=== PATIENT | female | born 1970 | race Caucasian/White ===

== ENCOUNTER → 2016-09-29 | Outpatient (CLI) | payer OTHER ==
--- NOTE | 2016-09-29 12:29 | CT ---
EXAMINATION TYPE: CT sinus wo con DATE OF EXAM: 09/29/2016 12:15 PM COMPARISON: NONE HISTORY: 46 year-old female complaining of chronic sinusitis and chronic allergies. CT DLP: 583.7 mGycm Automated exposure control for dose reduction was used. TECHNIQUE: Noncontrast axial views of the paranasal sinuses were obtained. Coronal reconstructions pe rformed. FINDINGS: There is mucosal thickening with frothy partial opacification of the anterior left maxillary sinus an d partial opacification extending into the anterior left ethmoid air cells. The frontal and sphenoid sinuses are clear. No air-fluid level. Reactive basilia- osteogenesis is not seen. There is no destruction of the osseous gimenez of the paranasal sinuses. Mucosal thickening extends to involve the region of the left osteomeatal complex. The imaged brain, sella, skull base and orbits are normal in appearance. Mastoid air cells and middle ear cavities are well pneumatized. IMPRESSION: Mucosal thickening with frothy partial opacification of the anterior left maxillary sinus and anterio r left ethmoid air cells. Correlate for acute on chronic sinusitis. The remainder of the paranasal si nuses are clear.
[2016-09-30 23:42] LABS: Alternaria alternata IgE 0.15 kU/L; Aspergillus fumagatus IgE <0.10 kU/L; Cat Epith & Dander IgE 0.39 kU/L; Cladosporian herbarum IgE <0.10 kU/L; Dermato. farinae IgE 2.04 kU/L; Egg White IgE <0.10 kU/L; Maple (Box Elder) IgE <0.10 kU/L; Orchard Grs(Cocksfoot) IgE <0.10 kU/L; Peanut IgE <0.10 kU/L; Ragweed,Common IgE <0.10 kU/L; Soybean IgE <0.10 kU/L
[2016-10-01 13:19] LABS: Com. Pigweed IgE <0.35 kU/L (<0.35); Com. Pigweed IgE Class CLASS 0; House Dust (Greer) IgE <0.35 kU/L (<0.35); House Dust (Greer) IgE Class CLASS 0
[2016-10-01 13:19] LABS: Alpha Lactalbumin IgE Class CLASS 0; Pecan IgE <0.35 kU/L (<0.35); Pecan IgE Class CLASS 0
[2016-10-01 13:20] LABS: Beta Lactoglobulin IgE Class CLASS 0
[2016-10-01 13:21] LABS: Casein IgE Class CLASS 0; Egg Yolk IgE Class CLASS 0
[2016-10-01 13:22] LABS: Cheddar Cheese IgE <0.35 kU/L (<0.35); Cheddar Cheese IgE Class CLASS 0; Mold Cheese IgE <0.35 kU/L (<0.35); Mold Cheese IgE Class CLASS 0; Penicillium notatum IgE Class CLASS 0
[2016-10-01 13:23] LABS: House Dust (Greer) IgE <0.35 kU/L (<0.35); House Dust (Greer) IgE Class CLASS 0; Lamb's Quarter IgE <0.35 kU/L (<0.35); Lamb's Quarter IgE Class CLASS 0; Mugwort IgE Class CLASS 0
[2016-10-01 13:24] LABS: Sheep Sorrel IgE <0.35 kU/L (<0.35); Sheep Sorrel IgE Class CLASS 0
[2016-10-01 14:21] LABS: Meadow Fescue IgE <0.35 kU/L (<0.35); Meadow Fescue IgE Class CLASS 0; Meadow Grs (KY blue) IgE <0.35 kU/L (<0.35); Meadow Grs (KY blue) IgE Class CLASS 0; Orchard Grass IgE Class CLASS 0; Orchard Grass(Cocksfoot) IgE <0.35 kU/L (<0.35); Rye Grass IgE Class CLASS 0; Timothy Grass IgE <0.35 kU/L (<0.35); Timothy Grass IgE Class CLASS 0; Vernal Grass IgE <0.35 kU/L (<0.35); Vernal Grass IgE Class CLASS 0
[2016-10-03 19:31] LABS: Cow's Milk IgG 52.9 mcg/mL (< 2.0); Egg Yolk IgG 5.4 mcg/mL (< 2.0); Peanut IgG 2.1 mcg/mL (< 2.0); Soybean IgG 3.6 mcg/mL (< 2.0)
[2016-10-03 19:32] LABS: Casein IgG 3.1 mcg/mL (< 2.0); Wheat IgG 4.5 mcg/mL (< 2.0)
[2016-10-06 11:00] LABS: Mis test requested (Blood) Hickory IgE
[2016-10-06 11:07] LABS: Mis test requested (Blood) Plantain IgE
[2016-10-06 11:19] LABS: Mis test requested (Blood) Ovalbumin IgE
[2016-10-08 12:17] LABS: Mis test requested (Blood) Cat Dander IgG
[2016-10-08 12:34] LABS: CPT Code See Coomment
[2016-10-08 12:37] LABS: Mis test requested (Blood) Aspergillus Fum IgG
[2016-10-08 12:51] LABS: Mis test requested (Blood) Alternaria alter IgG
[2016-10-08 12:55] LABS: Mis test requested (Blood) Cottonwood IgG
[2016-10-08 12:59] LABS: Mis test requested (Blood) Cockroach IgG
[2016-10-08 13:11] LABS: Mis test requested (Blood) Birch IgG
[2016-10-16 10:34] LABS: Mis test requested (Blood) Shrimp IgG
[2016-10-16 10:44] LABS: Mis test requested (Blood) Cheddar Chz IgG
[2016-10-16 10:49] LABS: Mis test requested (Blood) Mold Chz IgG
[2016-10-16 10:53] LABS: Mis test requested (Blood) House Dust-Greer IgG
[2016-10-16 11:00] LABS: Mis test requested (Blood) Elm IgG
[2016-10-16 11:04] LABS: Mis test requested (Blood) Oak IgG
[2016-10-16 11:06] LABS: Mis test requested (Blood) Ragweed IgG
[2016-10-16 11:11] LABS: Mis test requested (Blood) Pecan IgG
[2016-10-16 11:29] LABS: Mis test requested (Blood) Red Top Grs IgG
[2016-10-16 11:37] LABS: Mis test requested (Blood) Maple Box Elder IgG
[2016-10-16 11:40] LABS: Mis test requested (Blood) Orchard Grass IgG
[2016-10-16 11:43] LABS: Mis test requested (Blood) Birch IgG
[2016-10-16 14:33] LABS: Mis test requested (Blood) Sagebrush IgG
[2016-10-21 10:56] LABS: Mis test requested (Blood) SEE OVALBUMIN IGE
[2016-10-21 10:57] LABS: Mis test result (Blood) SEE OVALBUMIN IGE
[2016-10-23 14:19] LABS: Mis test requested (Blood) P. notatum IgG
== END | disposition home or self-care (01) ==
LOC: RADCTMAIN 11:15
PROVIDERS: ATTEND Otolaryngology Facial Plastic Surgery
DX: J34.89 Other specified disorders of nose and nasal sinuses (principal); Z00.00 Encounter for general adult medical examination without abnormal findings
CPT/HCPCS: 70486; 82785; 86001; 86003

== ENCOUNTER 2018-01-21 15:55 | Emergency (ER) | payer OTHER ==
[2018-01-21 16:20] VITALS: RESP 18
[2018-01-21] MEDS ORDERED: CYCLOBENZAPRINE 10 MG TAB PO STA (17:59)
[2018-01-21] MEDS ORDERED: Acetaminophen-Codeine 300-30mg TAB PO STA (18:00)
--- NOTE | 2018-01-21 18:23 | ED ---
Fall HPI - General Chief Complaint: Fall Stated Complaint: Fell Time Seen by Provider: 01/21/18 17:45 Source: patient, RN notes reviewed Mode of arrival: wheelchair Limitations: no limitations - History of Present Illness Initial Comments: This a 48-year-old female presents emergency Department chief complaint of neck and arm pain. Patient states that she fell 2 days ago. She states she tripped over her flip-flop fell forward To herself or her arms. She initially only had upper arm and shoulder pain but now has developed neck pain this morning. She states hurts worse with movement. She denies any headache, dizziness, blurred vision, chest or shortness of breath. She denies any upper extremity paresthesias or weakness. She has been taking ibuprofen but has not helped much. She has not applied any heat or ice. She did admit to abrasion to her knee. - Related Data Home Medications Medication Instructions Recorded Confirmed Ibuprofen [Motrin Ib] 800 mg PO Q6H PRN 01/21/18 01/21/18 Previous Rx's Medication Instructions Recorded Acetaminophen-Codeine 300-30mg 1 tab PO Q4H PRN #14 tablet 01/21/18 [Tylenol #3] Cyclobenzaprine [Flexeril] 10 mg PO TID PRN #15 tab 01/21/18 Ibuprofen [Motrin] 600 mg PO Q8HR PRN #30 tab 01/21/18 Allergies Allergy/AdvReac Type Severity Reaction Status Date / Time egg Allergy sneezing Verified 01/21/18 17:53 milk Allergy sneezing Verified 01/21/18 17:53 sulfamethoxazole AdvReac Rash/Hives Verified 01/21/18 17:54 [From Bactrim] trimethoprim [From Bactrim] AdvReac Rash/Hives Verified 01/21/18 17:54 Review of Systems ROS Statement: Those systems with pertinent positive or pertinent negative responses have been documented in the HPI. ROS Other: All systems not noted in ROS Statement are negative. 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 Absent: scleral icterus, conjunctival injection, periorbital swelling ENT exam: Present: normal exam, normal oropharynx, mucous membranes moist, TM's normal bilaterally, normal external ear exam Neck exam: Present: normal inspection, tenderness (Moderate tenderness over the trapezius right greater than left, obvious muscle spasm on the right), full ROM (Mild discomfort with rotation flexion-extension). Absent: meningismus, lymphadenopathy Respiratory exam: Present: normal lung sounds bilaterally. Absent: respiratory distress, wheezes, rales, rhonchi, stridor Cardiovascular Exam: Present: regular rate, normal rhythm, normal heart sounds. Absent: systolic murmur, diastolic murmur, rubs, gallop, clicks Neurological exam: Present: alert, oriented X3, CN II-XII intact, reflexes normal. Absent: motor sensory deficit Skin exam: Present: warm, dry, intact, normal color. Absent: rash Course Vital Signs 01/21/18 16:17 Temperature 98.8 F Pulse Rate 80 Respiratory 18 Rate Blood Pressure 154/88 O2 Sat by Pulse 99 Oximetry Medical Decision Making - Medical Decision Making 48-year-old female presents from chief complaint of fall neck and shoulder pain. Patient had x-rays cervical spine shows cervical sprain. Patient's pain is more related to muscle spasm from her fall. Patient discharge pain medications, anti-inflammatories and muscle relaxers. Return parameters were discussed. Disposition Clinical Impression: Fall, Trapezius muscle spasm, Cervical pain Disposition: HOME SELF-CARE Condition: Stable Instructions: Muscle Spasm (ED), Acute Neck Pain (ED) Additional Instructions: Please return to the Emergency Department if symptoms worsen or any other concerns. Prescriptions: Acetaminophen-Codeine 300-30mg [Tylenol #3] 1 tab PO Q4H PRN #14 tablet PRN Reason: pain Cyclobenzaprine [Flexeril] 10 mg PO TID PRN #15 tab PRN Reason: Muscle Spasm Ibuprofen [Motrin] 600 mg PO Q8HR PRN #30 tab PRN Reason: Pain Is patient prescribed a controlled substance at d/c from ED?: Yes When asked, does pt state using other controlled substances?: No If prescribed controlled substance>3 days was MAPS reviewed?: Prescribed <3 Days If opioid is for acute pain is fill amount 7 days or less?: Yes If Rx opioid, was Start Talking consent form obtained?: Yes Referrals: Alan Rivera MD [Primary Care Provider] - 1-2 days Time of Disposition: 18:47
--- NOTE | 2018-01-21 18:42 | XR ---
EXAMINATION TYPE: XR cervical spine comp DATE OF EXAM: 01/21/2018 COMPARISON: NONE HISTORY: Neck pain and stiffness TECHNIQUE: 6 views FINDINGS: Cervical vertebra have normal alignment. There is anterior spurring from C4 to T1. Posterio r elements are intact. The neural foramina are fairly well-maintained. Atlantoaxial facet joint is no rmal. There are no cervical ribs. IMPRESSION: Hypertrophic spurring in the mid and lower cervical spine. No fracture. No significant di sc space narrowing.
[2018-01-21 19:12] VITALS: BP 147/69; PULSE 79; TEMP 97.9
== END 2018-01-21 19:12 | disposition home or self-care (01) ==
LOC: EC 15:55
DX: M54.2 Cervicalgia (principal); M62.838 Other muscle spasm; M25.512 Pain in left shoulder; Z88.1 Allergy status to other antibiotic agents; Z88.2 Allergy status to sulfonamides; Z91.011 Allergy to milk products; Z91.012 Allergy to eggs; W01.0XXA Fall on same level from slipping, tripping and stumbling without subsequent striking against object, initial encounter
CPT/HCPCS: 72050; 99283

== ENCOUNTER → 2020-01-11 | Outpatient (CLI) | payer OTHER ==
--- NOTE | 2020-01-11 11:48 | CT ---
EXAMINATION TYPE: CT brain wo con DATE OF EXAM: 01/11/2020 COMPARISON: NONE HISTORY: abnormal mri today, attention right parietal cortex CT DLP: 822.6 mGycm. Automated Exposure Control for Dose Reduction was Utilized. TECHNIQUE: CT scan of the head is performed without contrast. FINDINGS: There is no acute intracranial hemorrhage. There is an extra-axial right high parietal 1. 9 x 2.4 cm extra-axial mass with slight mass effect on the adjacent gyri. No significant surrounding vasogenic edema. Patchy areas of hypoattenuation in the subcortical and deep white matter as well as to a lesser degree in the periventricular white matter are present on the MRA of the same date relate d to nonspecific white matter change. No hydrocephalus. The globes are intact and the visualized sin uses are clear. IMPRESSION: No acute intracranial hemorrhage seen. The abnormal T1 hyperintense signal on MRI appear s to be fat within a partially calcified right extra-axial parietal mass. Differential diagnosis is f or a lipomatous meningioma, epidermoid/dermoid tumor, chordoma, liposarcoma, and metastatic mucinous carcinoma. Comparison with any prior outside imaging would be of benefit if available to determine st ability.
== END | disposition home or self-care (01) ==
LOC: RADCTMAIN 11:02
PROVIDERS: ATTEND Psychiatry & Neurology Neurology
DX: R22.0 Localized swelling, mass and lump, head (principal)
CPT/HCPCS: 70450

== ENCOUNTER → 2020-01-11 | Outpatient (CLI) | payer OTHER ==
--- NOTE | 2020-01-11 09:44 | MR ---
EXAMINATION TYPE: MR brain/cspine wo DATE OF EXAM: 01/11/2020 COMPARISON: NONE HISTORY: Chronic Neck Pain, Headaches, Migrains, Right stiffness and weakness in Fingers x 20years TECHNIQUE: T1-weighted sagittal, T2, FLAIR, and diffusion axial, and T2 coronal coronal views of the brain are submitted. FINDINGS: There is no evidence of acute ischemia. There is an extra-axial area of abnormal signal which is high and T1 and low in T2 in the posterior parietal region on the right. Measures 1.6 x 1.7 cm. There is some displacement of the cortex. Although this may be chronic a subacute area of hemorrhage is not ex cluded and a CT scan is recommended. Referring physician notified by telephone. There is a moderate generalized degenerative change with numerous areas of abnormal signal the white matter which are nonspecific but most typical remote microvascular ischemia. Demyelinating process no t entirely excluded. No mass effect or midline shift. Craniocervical junction maintained. Sella turcica has a normal appearance. No cerebellopontine angle mass. Nonspecific soft tissue nodule seen in the subcutaneous tissues poste rior likely in the basis of sebaceous cyst. IMPRESSION: 1. 1.7 cm area of extra-axial abnormal signal posterior right parietal convexity with some displaceme nt adjacent cortex. High signal on T1 raises the possibility of subacute hemorrhage. CT scan is recom mended. Neoplastic process also in the differential diagnosis such as meningioma. 2. Degenerative and nonspecific white matter changes. Findings may been the basis of remote microvasc ular ischemia. Demyelinating process not excluded. EXAMINATION TYPE: MR brain/cspine wo DATE OF EXAM: 01/11/2020 COMPARISON: X-ray 01/21/2018 HISTORY: Chronic Neck Pain, Headaches, Migrains, Right stiffness and weakness in Fingers x 20years TECHNIQUE: T1 sagittal and coronal, T2 sagittal, and gradient echo axial views of the cervical spine are submitted. FINDINGS: The cranial cervical junction is preserved. There is no abnormal signal seen within the sp inal cord or paraspinal soft tissues. At C2-3 there is no disc herniation or canal stenosis. No foraminal encroachment. At C3-4 there is no degenerative disc disease or canal stenosis. No foraminal encroachment. There is facet arthropathy. Mild central disc bulging. At C4-5 there is hypertrophic change and degenerative disc disease with facet arthropathy. Posterior disc bulging but no canal stenosis. Neural foramina patent. At C5-6 there is degenerative disc disease and hypertrophic spurring with facet arthropathy. Uncovert ebral joint hypertrophy greater on the right results in mild right foraminal encroachment. Broad-base d disc bulging but no canal stenosis. At C6-7 there is degenerative disc disease with mild bilateral uncovertebral joint hypertrophy and mi ld right-sided foraminal encroachment. Broad-based disc bulging but no evidence of canal stenosis. At C7-T1 there is no disc herniation or canal stenosis. No foraminal encroachment. IMPRESSION: 1. Multilevel degenerative disc disease with disc bulging and hypertrophic spurring most marked at l evels C4-C7. Findings result in mild effacement at these levels with no canal stenosis. Multilevel mi ld right-sided foraminal encroachment. A [place] level critical message alert has been initiated for Phuong Orellana MD via the [facility] on 01/11/2020 9:39 AM. This message alert has been sent to Phuong Orellana MD v rehana the preferences provided by the clinician for the receipt of Radiology Critical Findings. Message ID [id number].
== END | disposition home or self-care (01) ==
LOC: RADMRIMAIN 07:47
PROVIDERS: ATTEND Psychiatry & Neurology Neurology
DX: G93.89 Other specified disorders of brain (principal); D32.0 Benign neoplasm of cerebral meninges; R90.89 Other abnormal findings on diagnostic imaging of central nervous system; G31.9 Degenerative disease of nervous system, unspecified; M50.321 Other cervical disc degeneration at C4-C5 level; G43.009 Migraine without aura, not intractable, without status migrainosus
CPT/HCPCS: 70551; 72141

== ENCOUNTER 2020-05-25 12:46 | Emergency (ER) | payer OTHER ==
[2020-05-25 13:04] VITALS: BP 130/82; PULSE 91; RESP 20; TEMP 98.2
[2020-05-25] MEDS ORDERED: LIDOCAINE 1% INJ 10MG/ML (20 ML MDV) SQ ONE (13:20)
[2020-05-25] MEDS ORDERED: AMOXIC-POT CLAV 875-125MG 1 EACH TAB PO STA (13:24)
[2020-05-25] MEDS ORDERED: ACET/COD 300 MG/30 MG STARTER PACK 6 TAB BTL PO STA (13:24)
--- NOTE | 2020-05-25 13:24 | ED ---
ENT HPI - General Chief complaint: Dental/Oral Stated complaint: dental pain Time Seen by Provider: 05/25/20 13:07 Source: patient Mode of arrival: ambulatory Limitations: no limitations - History of Present Illness Initial comments: Patient 50-year-old male presenting to the emergency department with chief complaint of abdominal pain. Dental pain. Patient states she fractured part of her tooth #31. States this occurred several months ago she has never seen a dentist. Patient states she is afraid to go to the dentist due to previous medics.. Patient has any facial swelling or erythema. Denies a night sweats or chills. Patient reports she has been managing her pain with Tylenol and Motrin but the pain has been bad over the last few days. States breathing in air makes the pain worse. - Related Data Home Medications Medication Instructions Recorded Confirmed Ibuprofen [Motrin Ib] 800 mg PO Q6H PRN 01/21/18 01/21/18 Previous Rx's Medication Instructions Recorded Acetaminophen-Codeine 300-30mg 1 tab PO Q4H PRN #14 tablet 01/21/18 [Tylenol #3] Cyclobenzaprine [Flexeril] 10 mg PO TID PRN #15 tab 01/21/18 Ibuprofen [Motrin] 600 mg PO Q8HR PRN #30 tab 01/21/18 Amoxicillin/Potassium Clav 1 tab PO Q12HR #20 tab 05/25/20 [Augmentin 875-125 Tablet] Allergies Allergy/AdvReac Type Severity Reaction Status Date / Time egg Allergy sneezing Verified 05/25/20 13:04 milk Allergy sneezing Verified 05/25/20 13:04 sulfamethoxazole AdvReac Rash/Hives Verified 05/25/20 13:04 [From Bactrim] trimethoprim [From Bactrim] AdvReac Rash/Hives Verified 05/25/20 13:04 Review of Systems ROS Statement: Those systems with pertinent positive or pertinent negative responses have been documented in the HPI. ROS Other: All systems not noted in ROS Statement are negative. 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 There is a partially fractured tooth #31. No signs of oral lesions.), mucous membranes moist, TM's normal bilaterally, normal external ear exam Neck exam: Present: normal inspection, full ROM. Absent: tenderness Respiratory exam: Present: normal lung sounds bilaterally. Absent: respiratory distress, wheezes, rales Cardiovascular Exam: Present: regular rate, normal rhythm, normal heart sounds Extremities exam: Present: normal inspection, full ROM. Absent: tenderness, normal capillary refill Back exam: Present: normal inspection, full ROM. Absent: tenderness Neurological exam: Present: alert, oriented X3 Psychiatric exam: Present: normal affect, normal mood Skin exam: Present: warm, dry, intact, normal color Course Vital Signs 05/25/20 13:01 Temperature 98.2 F Pulse Rate 91 Respiratory 20 Rate Blood Pressure 130/82 O2 Sat by Pulse 100 Oximetry Procedures - Nerve Block Consent Obtained: verbal consent Local Anesthetic Used: Lidocaine 1% Amount of anesthesia used: 2 Side: right Intraoral Nerve Block: inferior alveolar Procedure Successful: Yes Complications: none Patient Tolerated Procedure: well, no complications Medical Decision Making - Medical Decision Making Patient 50-year-old male presenting to emergency Department with a chief complaint dental pain. On physical examination, patient has a partially fractured tooth #31. No signs of gingival irritation. No periapical abscesses. Right inferior alveolar block administered and it was successful. Patient will be discharged Tylenol 3 starter pack and advised not to drive or operate heavy machinery taking medication. Patient also started on Augmentin with a 10 day course of Augmentin. Patient states she is going to follow-up with her dentist. Strict return parameters were thoroughly discussed with patient is upsetting ago. Case discussed with physician. Disposition Clinical Impression: Pain, dental, Fractured tooth Disposition: HOME SELF-CARE Condition: Stable Instructions (If sedation given, give patient instructions): Toothache (ED) Additional Instructions: Alternate between Tylenol and Motrin. Take Tylenol take when the pain is severe. Do not drive or operative heavy machinery when taking medication. Continue taking the antibiotics as prescribed. Follow with a dentist. Return to emergency department if symptoms worsen. Prescriptions: Amoxicillin/Potassium Clav [Augmentin 875-125 Tablet] 1 tab PO Q12HR #20 tab Is patient prescribed a controlled substance at d/c from ED?: No Referrals: Abdoulaye Bunn MD [Primary Care Provider] - 1-2 days Time of Disposition: 13:39
== END 2020-05-25 13:52 | disposition home or self-care (01) ==
LOC: EC 12:46
DX: S02.5XXA Fracture of tooth (traumatic), initial encounter for closed fracture (principal); R10.9 Unspecified abdominal pain; Z90.49 Acquired absence of other specified parts of digestive tract; Z88.1 Allergy status to other antibiotic agents; Z88.2 Allergy status to sulfonamides; Z91.011 Allergy to milk products; Z91.012 Allergy to eggs; X58.XXXA Exposure to other specified factors, initial encounter
CPT/HCPCS: 99282; 64400; J2001

== ENCOUNTER → 2020-10-24 | Outpatient (CLI) | payer OTHER ==
--- NOTE | 2020-10-28 11:15 | MM ---
Reason for exam: screening (asymptomatic). History: Patient had first child at age 33. Family history of breast cancer in paternal grandmother. Physical Findings: A clinical breast exam by your physician is recommended on an annual basis and results should be correlated with mammographic findings. MG 3D Screening Mammo W/Cad Bilateral CC and MLO view(s) were taken. There are scattered fibroglandular densities. No significant changes when compared with prior studies. ASSESSMENT: Benign, BI-RAD 2 RECOMMENDATION: Routine screening mammogram of both breasts in 1 year.
== END | disposition home or self-care (01) ==
LOC: RADMAMWWP 10:05
PROVIDERS: ATTEND Internal Medicine
DX: Z12.31 Encounter for screening mammogram for malignant neoplasm of breast (principal); Z80.3 Family history of malignant neoplasm of breast
CPT/HCPCS: 77063; 77067

== ENCOUNTER 2021-05-17 15:22 | Emergency (ER) | payer OTHER ==
[2021-05-17 16:45] VITALS: BP 163/83; PULSE 94; RESP 18; TEMP 98.1
[2021-05-17] MEDS ORDERED: ACET/COD 300 MG/30 MG STARTER PACK 6 TAB BTL PO STA (16:46)
--- NOTE | 2021-05-17 16:47 | ED ---
ENT HPI - General Source: patient, RN notes reviewed Mode of arrival: ambulatory Limitations: no limitations <Humberto Olson - Last Filed: 05/17/21 16:47> <Cesia Ellison - Last Filed: 05/19/21 01:05> - General Chief complaint: Dental/Oral Stated complaint: Tooth Pain Time Seen by Provider: 05/17/21 16:45 - History of Present Illness Initial comments: 51-year-old female presents emergency from chief complaint abdominal pain. Patient states she had 2 bad teeth the left. She scheduled see a dentist on Wednesday states that she started having increasing swelling. Patient does complain of pain or difficulty swallowing. Chills no neck pain or neck stiffness. (Humberto Olson) - Related Data Home Medications Medication Instructions Recorded Confirmed Ibuprofen [Motrin Ib] 800 mg PO Q6H PRN 01/21/18 01/21/18 Previous Rx's Medication Instructions Recorded Acetaminophen-Codeine 300-30mg 1 tab PO Q4H PRN #14 tablet 01/21/18 [Tylenol #3] Cyclobenzaprine [Flexeril] 10 mg PO TID PRN #15 tab 01/21/18 Ibuprofen [Motrin] 600 mg PO Q8HR PRN #30 tab 01/21/18 Amoxicillin/Potassium Clav 1 tab PO Q12HR #20 tab 05/25/20 [Augmentin 875-125 Tablet] Clindamycin HCl 300 mg PO Q6HR #40 cap 05/17/21 Ibuprofen [Motrin] 600 mg PO Q8HR PRN #30 tab 05/17/21 Allergies Allergy/AdvReac Type Severity Reaction Status Date / Time egg Allergy sneezing Verified 05/17/21 16:43 milk Allergy sneezing Verified 05/17/21 16:43 sulfamethoxazole AdvReac Rash/Hives Verified 05/17/21 16:43 [From Bactrim] trimethoprim [From Bactrim] AdvReac Rash/Hives Verified 05/17/21 16:43 Review of Systems ROS Other: All systems not noted in ROS Statement are negative. <Humberto Olson - Last Filed: 05/17/21 16:47> ROS Other: All systems not noted in ROS Statement are negative. <Cesia Ellison - Last Filed: 05/19/21 01:05> ROS Statement: Those systems with pertinent positive or pertinent negative responses have been documented in the HPI. 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 Absent: scleral icterus, conjunctival injection, periorbital swelling ENT exam: Present: mucous membranes moist. Absent: normal oropharynx (Dental caries, dental fracture, swelling the left mandibular space, no drainable abscess swan secretions well) Neck exam: Present: normal inspection. Absent: tenderness, meningismus, lymphadenopathy Respiratory exam: Present: normal lung sounds bilaterally. Absent: respiratory distress, wheezes, rales, rhonchi, stridor Cardiovascular Exam: Present: regular rate, normal rhythm, normal heart sounds. Absent: systolic murmur, diastolic murmur, rubs, gallop, clicks <Humberto Olson - Last Filed: 05/17/21 16:47> Course Vital Signs 05/17/21 16:43 Temperature 98.1 F Pulse Rate 94 Respiratory 18 Rate Blood Pressure 163/83 O2 Sat by Pulse 96 Oximetry Medical Decision Making <Humberto Olson - Last Filed: 05/17/21 16:47> <Cesia Ellison - Last Filed: 05/19/21 01:05> - Medical Decision Making Patient be discharged in stable condition with oral antibiotics, pain control and close follow-up with dentist. (Humberto Olson) I was available for consultation in the emergency department. The history and physical exam were done by the midlevel provider. I was consulted for this patients care. I reviewed the case with the midlevel provider and based on their presentation of the patient, I agree with the assessment, medical decision making and plan of care as documented. Chart was dictated using [employer] dictation software. Attempts were made to correct any dictation errors however some typographical errors may persist. (Cesia Ellison) Disposition Is patient prescribed a controlled substance at d/c from ED?: No Time of Disposition: 16:47 <Humberto Olson - Last Filed: 05/17/21 16:47> <Cesia Ellison - Last Filed: 05/19/21 01:05> Clinical Impression: Dental abscess, Dental caries Disposition: HOME SELF-CARE Condition: Stable Instructions (If sedation given, give patient instructions): Toothache (ED) Additional Instructions: Please return to the Emergency Department if symptoms worsen or any other concerns. Prescriptions: Clindamycin HCl 300 mg PO Q6HR #40 cap Ibuprofen [Motrin] 600 mg PO Q8HR PRN #30 tab PRN Reason: Pain Referrals: Abdoulaye Bunn MD [Primary Care Provider] - 1-2 days
== END 2021-05-17 17:35 | disposition home or self-care (01) ==
LOC: EC 15:22
DX: S02.5XXA Fracture of tooth (traumatic), initial encounter for closed fracture (principal); K02.9 Dental caries, unspecified; K04.7 Periapical abscess without sinus; R10.9 Unspecified abdominal pain; Z79.1 Long term (current) use of non-steroidal anti-inflammatories (NSAID); Z88.1 Allergy status to other antibiotic agents; Z88.2 Allergy status to sulfonamides; Z90.49 Acquired absence of other specified parts of digestive tract; X58.XXXA Exposure to other specified factors, initial encounter
CPT/HCPCS: 99283

== ENCOUNTER 2021-08-26 10:12 | Emergency (ER) | payer OTHER ==
[2021-08-26 10:16] VITALS: RESP 18; TEMP 98.6
--- NOTE | 2021-08-26 10:44 | ED ---
General Adult HPI - General Chief complaint: Upper Respiratory Infection Stated complaint: covid+, wants infusion Time Seen by Provider: 08/26/21 10:19 Source: patient Mode of arrival: ambulatory Limitations: no limitations - History of Present Illness Initial comments: Dictation was produced using [employer] dictation software. please excuse any gramm atical, word or spelling errors. Chief Complaint: 51-year-old obese female presents to the emergency department for monoclonal antibodies History of Present Illness: Patient's 51-year-old female she was sent in by primary care physician for monoclonal antibody infusion. Patient tested positive for COVID-19 yesterday. She's been symptomatic for the last 4 days. Patient states that she does not have a significant history. Primary care physician house where his word that patient has COPD. As a touch of hypertension. States that she's had a cough. She is not vaccinated. The ROS documented in this emergency department record has been reviewed and confirmed by me. Those systems with pertinent positive or negative responses have been documented in the HPI. All other systems are other negative and/or noncontributory. PHYSICAL EXAM: General Impression: Alert and oriented x3, not in acute distress HEENT: Normocephalic atraumatic, extra-ocular movements intact, pupils equal and reactive to light bilaterally, mucous membranes moist. Cardiovascular: Heart regular rate and rhythm Chest: Able to complete full sentences, no retractions, no tachypnea Musculoskeletal: Pulses present and equal in all extremities, no peripheral edema Motor: no focal deficits noted Neurological: CN II-XII grossly intact, no focal motor or sensory deficits noted Skin: Intact with no visualized rashes Psych: Normal affect and mood ED course: 51-year-old female presents to the emergency department for monoclonal antibody infusion. Vital signs upon arrival are within acceptable limits. Ambulatory pulse ox was not hypoxic. She maintained oxygen levels of 96% and higher with ambulation. Patient meets criteria for monoclonal antibody infusion. Patient given monoclonal antibodies. She is observed in the emergency department for one hour after infusion with no clinical issues. Patient be discharged. - Related Data Home Medications Medication Instructions Recorded Confirmed Aspirin EC [Ecotrin Low Dose] 81 mg PO DAILY 08/26/21 08/26/21 Carvedilol [Coreg] 3.125 mg PO BID 08/26/21 08/26/21 DULoxetine HCL [Cymbalta] 60 mg PO BID 08/26/21 08/26/21 Dextroamphetamine/Amphetamine 20 mg PO AC-BID 08/26/21 08/26/21 [Adderall] Ergocalciferol [Vitamin D2 (1250 1,250 mcg PO MO 08/26/21 08/26/21 Mcg = 88107 Iu)] Ibuprofen [Motrin] 600 mg PO BID 08/26/21 08/26/21 Melatonin 10 mg PO HS 08/26/21 08/26/21 Previous Rx's Medication Instructions Recorded Cyclobenzaprine [Flexeril] 10 mg PO TID PRN #15 tab 01/21/18 Allergies Allergy/AdvReac Type Severity Reaction Status Date / Time egg Allergy sneezing Verified 08/26/21 10:16 milk Allergy sneezing Verified 08/26/21 10:16 sulfamethoxazole AdvReac Rash/Hives Verified 08/26/21 10:16 [From Bactrim] trimethoprim [From Bactrim] AdvReac Rash/Hives Verified 08/26/21 10:16 Review of Systems ROS Statement: Those systems with pertinent positive or pertinent negative responses have been documented in the HPI. ROS Other: All systems not noted in ROS Statement are negative. 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 History of Any Multi-Drug Resistant Organisms: None Reported Past Surgical History: Cholecystectomy Past Psychological History: No Psychological Hx Reported Smoking Status: Never smoker Past Alcohol Use History: None Reported Past Drug Use History: None Reported General Exam Limitations: no limitations Course Vital Signs 08/26/21 10:13 Temperature 98.6 F Pulse Rate 105 H Respiratory 18 Rate Blood Pressure 151/82 O2 Sat by Pulse 98 Oximetry Disposition Clinical Impression: COVID-19 Disposition: HOME SELF-CARE Condition: Fair Instructions (If sedation given, give patient instructions): Coronavirus Disease 2019 (COVID-19) Is patient prescribed a controlled substance at d/c from ED?: No Referrals: Abdoulaye Bunn MD [Primary Care Provider] - 1-2 days
[2021-08-26] MEDS ORDERED: SODIUM CHLORIDE 0.9% 50 ML IVPB ONE (10:45)
[2021-08-26] MEDS ORDERED: BAMLANIVIMAB (EUA) 700 MG, ETESEVIMAB (EUA) 1,400 MG in SODIUM CHLORIDE 0.9% 100 ML IVPB ONE (11:00)
[2021-08-26 12:38] VITALS: BP 145/80; PULSE 94
== END 2021-08-26 12:37 | disposition home or self-care (01) ==
LOC: EC 10:12
DX: U07.1 COVID-19 (principal); J44.9 Chronic obstructive pulmonary disease, unspecified; I10 Essential (primary) hypertension; Z79.82 Long term (current) use of aspirin; Z79.1 Long term (current) use of non-steroidal anti-inflammatories (NSAID); Z79.899 Other long term (current) drug therapy
CPT/HCPCS: 99283; J3490

== ENCOUNTER → 2022-01-22 | Outpatient (CLI) | payer OTHER ==
--- NOTE | 2022-01-25 09:09 | MR ---
EXAMINATION TYPE: MR brain wo/w con DATE OF EXAM: 01/22/2022 COMPARISON: Correlation CT and MRI 01/11/2020. HISTORY: 52-year-old female Migraine, occipital neuralgia TECHNIQUE: Multiplanar, multisequence images of the brain and brainstem were acquired before and aft er administration of 11 mL IV Gadavist. Diffusion weighted imaging is performed. FINDINGS: No evidence for acute infarction, hemorrhage, midline shift, herniation, effacement of basal cisterns , or extra-axial fluid collection. There is redemonstration of a ossified extra-axial mass along the right parietal convexity. This majo ures 3.2 x 1.4 x 1.5 cm (in comparison to 3.4 x 1.4 x 1.4 cm on 01/11/2020). There may be areas of cassidy t intrinsic enhancement. Only mild regional mass effect onto the underlying right parietal cortex. No additional mass or mass effect is identified. Mild generalized supratentorial volume loss. Secondary mild prominence to the ventricular system is u nchanged. Unchanged dominant right vertebral artery. Otherwise, major intracranial flow voids are intact. T2/FLAIR weighted sequences show moderate to severe scattered bright white matter foci in the subcort ical and deep white matter regions of both cerebral hemispheres. A few foci are minimally gómez on v isual inspection. For example, a dominant lesion along the subcortical right parietal region measures 1.2 cm now versus 1.1 cm, previously, axial image 18. A few foci along the lateral right frontal sub cortical region appear gómez, axial image 19. Midline structures demonstrate normal morphology. The craniocervical junction is normal. Post contrast images demonstrate no evidence of pathologic enhancement. Dural venous sinuses are pat ent. Mild mucosal thickening ethmoid air cells. The globes are intact. IMPRESSION: 1. Ossified extra-axial mass along the right parietal convexity showing areas of faint intrinsic enha ncement remains unchanged compared to 01/11/2020 measuring approximately 3.2 x 1.5 cm. 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 Consider annual follow-up surveillance exams. 2. Similar moderate to severe scattered burden of T2 bright white matter change. A few foci may be mi nimally larger by 1 to 2 mm. Chronic migraines, demyelinating disease, hypertension, Lyme's disease, and chronic small vessel ischemic disease are differential considerations. 3. Mild generalized cerebral atrophy is similar. No enhancing lesions.
--- NOTE | 2022-01-25 09:15 | MR ---
EXAMINATION TYPE: MR cervical spine wo con DATE OF EXAM: 01/22/2022 COMPARISON: 01/11/2020 HISTORY: 52-year-old female Migraine, occipital neuralgia TECHNIQUE: Multiplanar, multisequence images of the cervical spine were acquired without contrast. FINDINGS: No craniocervical junction abnormality, predental space widening, or prevertebral soft tissue swellin g. Mild to moderate degenerative disc disease with desiccated and bulging discs. Anterior and plate spon dylosis mid to lower cervical spine. Degenerative grade 1 anterolisthesis C4-C5. Remaining alignment is maintained. Normal course and caliber of the cervical spinal cord. Disc material abuts the ventral cord at C4-C5, C5-C6 and C6-C7, similar to prior exam and results in overall mild narrowing of the spinal canal. No cord compression or milan canal compromise. Multilevel facet and uncovertebral joint arthropathy is present. No significant neuroforaminal stenos is is seen. There is some artifact projecting along the cord. No definite T2 weighted cord signal abnormality whe n correlating with axial series. No prevertebral or paravertebral soft tissue abnormality seen. IMPRESSION: 1. Similar mild to moderate degenerative disc disease. Multilevel facet and uncovertebral joint arthr opathy. 2. Degenerative grade 1 anterolisthesis C4-C5. 3. Disc material abuts the ventral cord at C4-C5, C5-C6, and C6-C7, similar to prior exam, resulting in overall mild narrowing of the spinal canal at these levels. No cord compression or milan canal com promise. 4. No significant neuroforaminal stenosis.
== END | disposition home or self-care (01) ==
LOC: RADMRIMAIN 11:04
PROVIDERS: ATTEND Psychiatry & Neurology Neurology
DX: G43.009 Migraine without aura, not intractable, without status migrainosus (principal); G31.9 Degenerative disease of nervous system, unspecified; M50.223 Other cervical disc displacement at C6-C7 level; M43.12 Spondylolisthesis, cervical region; M99.71 Connective tissue and disc stenosis of intervertebral foramina of cervical region
CPT/HCPCS: 70553; 72141; A9585

== ENCOUNTER → 2022-02-04 | Outpatient (CLI) | payer OTHER ==
[2022-02-04 11:49] VITALS: BP 146/90; PULSE 82; RESP 18; TEMP 98.4
--- NOTE | 2022-02-04 11:52 | P.PAINPG ---
Objective - Vital Signs Vital signs: Intake & Output 02/03/22 02/04/22 02/04/22 18:59 06:59 18:59 Weight 113.398 kg PQRS Measure Charge Sheet Comment: HISTORY OF PRESENT ILLNESS: 52 yr old female as a referral from Dr Orellana presents today with severe and chronic occipital neuralgia secondary to cervical anterolisthesis and facet arthropathyf or evaluation. Pt states she has upper neck pain, 4/10 in intensity, constant, achy/shooting in character up the BL scalp. Pain is provoked with hyperextension and rotation. Pain is relieved with medications (Flexeril, Motrin), topicals, laying supine, reclining, ice, repositioning and rest. PMH: OA PSH: Cholycystectomy SH: Negative x 3 FH: Non contributory All: See list Meds: See list REVIEW OF ORGAN SYSTEMS: CONSTITUTIONAL: No fevers or chills. No recent weight loss. NEUROLOGICAL: + numbness and tingling along the distal extremities. No seizure disorders or headaches. MUSCULOSKELETAL: + pain PSYCHIATRIC: Denies current depression or suicidal thoughts. Physical Examinations : Constitutional : Cooperative , not in acute distress . Neurologic : Cranial nerve II to XII intact. No focal neurological deficits. Psychiatric : alert & oriented x 3. Matching mood & appropriate affect. Judgment & insight intact. Musculoskeletal : Cervical Spine +BL TOAN & +L ANDREA TTP Motor strength in the deltoid and biceps: Normal right side. Normal Left side Motor strength biceps and the wrist extensors: Normal right side . Normal left side Motor strength in the triceps muscle: Normal right side. Normal left side Deep tendon reflexes: Normal at the biceps. Normal at Brachioradialis. Normal at triceps Vertebral body tenderness to deep palp ation over Cervical facet loading test: positive bilaterally Spurling test: positive bilaterally Neck distraction test: positive bilaterally Ace sign: positive bilaterally Lumbar spine Motor strength lower extremities ,thigh and legs 5/5 Right side , 5/5 Left side Deep tendon reflexes : Normal Knee Jerk. Normal Ankle Jerk Vertebral body tenderness over Lumbar facet Loading Test: positive Right / positive Left Range of motion of the lumbar spine Flexion 30 degrees, extension 10 degrees Straight Leg Raise test: Left/ Right po sitive at degree Sangita test: positive right / positive left. Severe tenderness over the Sacroiliac joint on the Right / Left sides Gaenslen test: positive bilaterally Seated flexion test: positive bilaterally. Sacral spine : Severe tenderness over the Sacroiliac joint: right side / left side Range of motion: Flexion of the lumbar spine <60 degrees Range of motion: Extension of the lumbar spine <20 degrees Gaenslen's Test positive Ta's Test positive Sangita test: positive right side / left side Thigh Thrust Test Sacral Thrust Test Imaging: MRI without contrast of the brain in the cervical spine from 01/22/22 reviewed Assessment/ Plan : Occipital Neuralgia Recommendation of BL TOAN and L ANDREA injections. May need a series of injections for optimal pain relief. Risks, benefits of procedure discussed and patient verbalized understanding. Denies aspirin or anti- coagulant use or medical history of diabetes. Protocol for discontinuation/ continuation of medications dolores procedure discussed. All questions answered. I have spent greater than 30 minutes on patient care today. Dr Maxwell was available by phone for the evaluation of this patient. The time was used to review the medical records including relevant urine studies and Prescription h istory (MAPs), review of the available imaging, evaluation and examination of the patient, coordination of care with the medical staff and if applicable referring physicians, as well as creation of the medical record PQRS Narrative: Smoking Status Never smoker Home Medications: Ambulatory Orders Cyclobenzaprine [Flexeril] 10 mg PO TID PRN #15 tab 01/21/18 Aspirin EC [Ecotrin Low Dose] 81 mg PO DAILY 08/26/21 DULoxetine HCL [Cymbalta] 60 mg PO BID 08/26/21 Dextroamphetamine/Amphetamine [Adderall] 20 mg PO AC-BID 08/26/21 Ergocalciferol [Vitamin D2 (1250 Mcg = 08075 Iu)] 1,250 mcg PO MO 08/26/21 Ibuprofen [Motrin] 600 mg PO BID 08/26/21 Melatonin [Melatonin ER] 10 mg PO HS 08/26/21 carvediloL [Coreg] 3.125 mg PO BID 08/26/21 Controlled Substance Measures - Controlled Substance Measures Is patient prescribed a controlled substance at discharge?: No
== END ==
LOC: PNWHC3 10:05
PROVIDERS: ATTEND Specialist
DX: M54.81 Occipital neuralgia (principal); M19.90 Unspecified osteoarthritis, unspecified site; Z91.012 Allergy to eggs; Z91.011 Allergy to milk products; Z88.2 Allergy status to sulfonamides
CPT/HCPCS: 99211

== ENCOUNTER → 2022-02-05 | Outpatient (CLI) | payer OTHER ==
--- NOTE | 2022-02-09 17:32 | MM ---
Reason for Exam: Screening (asymptomatic). Last mammogram was performed 1 year(s) and 3 month(s) ago. Patient History: Menarche at age 16. First Full-Term at age 33. Late child-bearing (after 30). Paternal grandmother had breast cancer. Last menstrual period: 01/18/2022 Risk Values: Carolyn 5 year model risk: 1.4%. NCI Lifetime model risk: 10.6%. Prior Study Comparison: 10/24/2020 Bilateral Screening Mammogram, [facility]. Tissue Density: There are scattered fibroglandular densities. Findings: Analyzed By CAD. There is no suspicious group of microcalcifications or new suspicious mass in either breast. Overall Assessment: Negative, BI-RAD 1 Management: Screening Mammogram of both breasts in 1 year. 1. Patient should continue monthly self breast exams. 2. A clinical breast exam by your physician is recommended on an annual basis. 3. This exam should not preclude additional follow-up of suspicious palpable abnormalities. Electronically signed and approved by: Tanner Gamble M.D. Radiologist
== END | disposition home or self-care (01) ==
LOC: RADMAMWWP 09:30
PROVIDERS: ATTEND Internal Medicine
DX: Z12.31 Encounter for screening mammogram for malignant neoplasm of breast (principal); Z80.3 Family history of malignant neoplasm of breast
CPT/HCPCS: 77063; 77067

== ENCOUNTER 2022-03-17 07:55 | Day surgery (SDC) | payer OTHER ==
[2022-03-13 11:25] VITALS: BMI 44.2
[~2022-03-17 07:55] MED LIST: LACTATED RINGERS 1,000 ML IV SCH
[2022-03-17 08:43] VITALS: RESP 16; TEMP 98.6
[2022-03-17] MEDS ORDERED: ROPIVACAINE 5MG/ML 20ML VIAL ONE (09:16)
[2022-03-17] MEDS ORDERED: MIDAZOLAM 2 MG/2 ML VIAL ONE (09:16)
[2022-03-17] MEDS ORDERED: fentaNYL (PF) 50 MCG/ML 2 ML AMP ONE (09:16)
[2022-03-17] MEDS ORDERED: DEXAMETHASONE SOD PHOSPHATE 10 MG/ML 1 ML VIAL ONE (09:16)
--- NOTE | 2022-03-17 09:28 | P.PCN ---
Date of Procedure: 03/17/22 Procedure(s) Performed: Bilateral greater and lesser occipital nerve block Description of Procedure: Pre-operative diagnosis: occipital neuralgia Post Operative Diagnosis: occipital neuralgia Procedure: Bilateral greater & lesser occipital nerve block under ultrasound - Ultrasound used to place needle and avoid vascular structures. Anesthesia provided by the nurse Anesthesia type: Moderate sedation Anesthesia supervision start time:916 Anesthesia supervision and time:927 PROCEDURE INDICATION: The patient with neck pain and headache secondary to occipital neuralgia unresponsive to conservative treatments. PROCEDURE DESCRIPTION / TECHNIQUE: The patient was seen and identified in the preoperative area. Risks, benefits, complications, and alternatives were discussed with the patient, the patient agreed to proceed with the procedure and signed the consent. Vital signs remained stable throughout the procedure. Patient was taken to the OR and time out was completed. The patient was placed in the sitting position on the procedure table. The cervical area and occiptial area were prepped with alcohol swab. Critical pause was taken. Vital signs were closely monitored during the procedure. Conscious sedation was used during the procedure to decrease patients anxiety. Right side: Ultrasound was used and the occipital artery was visualized exiting the skull about 2-3 cm lateral and 2cm inferior to the occipital protuberance On the right side. Then after negative aspiration, a 25g needed was introduced under ultrasound, negative aspiration confirmed and then 3 ml of the block solution containing 2 ml of PF Ropivaciane 0.5% and dexamethasone (total of 10mg) was injected after negative aspiration. Needle was withdrawn intact. After the greater occipital nerve landmark was identified, attention was turned to the right occipital landmark. After negative aspiration 25-gauge needle was used to inject 1 mL of ropivacaine with a mixture of dexamethasone. Left side: Ultrasound was used and the occipital artery was visualized exiting the skull about 2-3 cm lateral and 2cm inferior to the occipital protuberance On the left side. Then after negative aspiration, a 25g needed was introduced under ultrasound, negative aspiration confirmed and then 3 ml of the block solution containing 2 ml of PF Ropivaciane 0.5% and dexamethasone (total of 10mg) was injected after negative aspiration. Needle was withdrawn intact. After the greater occipital nerve landmark was identified, attention was turned to the left occipital landmark. After negative aspiration 25-gauge needle was used to inject 1 mL of ropivacaine with a mixture of dexamethasone. Patient tolerated procedure well. No acute complications.
[2022-03-17] MEDS ORDERED: IV FLUID CONTINUATION 950 ML IV ONE (09:32)
[2022-03-17 09:49] VITALS: BP 125/69; PULSE 73
== END 2022-03-17 10:04 | disposition home or self-care (01) ==
LOC: ORPAIN 07:55
PROVIDERS: ATTEND Hospitalist
DX: M54.81 Occipital neuralgia (principal); Z88.2 Allergy status to sulfonamides
CPT/HCPCS: 81025; 64405; J2250; J1100; J3010; J2795

== ENCOUNTER → 2023-08-24 | Outpatient (CLI) | payer OTHER ==
--- NOTE | 2023-08-24 14:31 | MM ---
Reason for Exam: Screening (asymptomatic). Last mammogram was performed 1 year(s) and 7 month(s) ago. Patient History: Menarche at age 16. First Full-Term at age 33. Late child-bearing (after 30). Premenopausal. Patient has history of breast feeding. Paternal grandmother had breast cancer. Last menstrual period: 08/17/2023 Risk Values: Carolyn 5 year model risk: 1.4%. NCI Lifetime model risk: 10.4%. Prior Study Comparison: 10/24/2020 Bilateral Screening Mammogram, [facility]. 02/05/2022 Bilateral MG 3D screening mammo w/cad, [facility]. Tissue Density: The breast tissue is almost entirely fat. Findings: Analyzed By CAD. There is no suspicious group of microcalcifications or new suspicious mass. Overall Assessment: Negative, BI-RAD 1 Management: Screening Mammogram of both breasts in [address] [facility] will attempt to contact patient to return for supplemental views and ultrasound if indicated. Patient should continue monthly self-breast exams. A clinical breast exam by your physician is recommended on an annual basis. This exam should not preclude additional follow-up of suspicious palpable abnormalities. Note on Carolyn scores and lifetime risk: 1. A Carolyn score greater than 3% is considered moderate risk. If this is the case, consider specialist referral to assess eligibility for a risk reducing agent. 2. If overall lifetime risk for the development of breast cancer is 20% or higher, the patient may qualify for future screening with alternating mammogram and breast MRI. Electronically signed and approved by: Jimmy Gonzalez DO
== END | disposition home or self-care (01) ==
LOC: RADMAMWWP 10:51
PROVIDERS: ATTEND Internal Medicine
DX: Z12.31 Encounter for screening mammogram for malignant neoplasm of breast (principal); Z80.3 Family history of malignant neoplasm of breast
CPT/HCPCS: 77067

== ENCOUNTER → 2024-06-13 | Outpatient (CLI) | payer OTHER ==
--- NOTE | 2024-06-14 19:15 | MR ---
EXAMINATION TYPE: MR brain wo/w con DATE OF EXAM: 06/13/2024 COMPARISON: 01/22/2022 HISTORY: benign neoplasm of brain. Patient states large knot back left of skull. CONTRAST: Performed utilizing 9.5 mL intravenous Gadobutrol gadolinium contrast. TECHNIQUE: Multiplanar, multiecho imaging on a 3.0 Iraida magnet is performed through the brain. Stud y is performed within 24 hours of arrival to the hospital. The craniovertebral junction is normal. The pituitary is normal. Diffusion-weighted imaging is performed. No abnormal hyperintensity is present to suggest an acute i ntracranial infarct or acute ischemic change. On T2 and inversion recovery sequences there is a extra-axial hypointense area within the right poste rior calvarium. On T1-weighted images this is hyperintense measuring 2.8 x 1.5 cm. Previous provided measurements of 3.2 x 1.4 cm. No interval growth is evident. Following contrast mild enhancement of t his region is present. No additional enhancement is identified. There are multiple scattered small rounded areas of hyperintensity on T2 and Inversion Recovery weigh pawel sequences within the deep white matter and subcortical white matter bilaterally which are non-spe cific but can be related to microvascular ischemic changes. Reference lesions right parietal lobe measuring 1.4 cm, series 601 image 44, previous measurement 1.2 cm may be within measurement error. 2 larger subcortical white matter changes posterior right fronta l lobe, series 601 image 45 measuring 0.6 and 0.5 cm. Previous measurement 0.6 and 0.7 cm. Ventricles and sulci are appropriate for the patient age. IMPRESSION: 1. Stable extra-axial lobular mass with mild enhancement right posterior parietal region. 2. Extensive deep white matter and subcortical white matter changes, stable from comparison [facility], , 06/14/2024 7:12 PM
== END | disposition home or self-care (01) ==
LOC: RADMRIMAIN 17:51
PROVIDERS: ATTEND Psychiatry & Neurology Neurology
DX: D32.0 Benign neoplasm of cerebral meninges (principal); R90.82 White matter disease, unspecified
CPT/HCPCS: 70553; A9585

== ENCOUNTER → 2024-12-15 | Outpatient (CLI) | payer OTHER ==
--- NOTE | 2024-12-15 14:00 | MM ---
Reason for Exam: Screening (asymptomatic). Last mammogram was performed 1 year(s) and 4 month(s) ago. Patient History: Menarche at age 16. First Full-Term at age 33. Late child-bearing (after 30). Premenopausal. Patient has history of breast feeding. Paternal grandmother had breast cancer. Risk Values: Carolyn 5 year model risk: 1.5%. NCI Lifetime model risk: 10.2%. Prior Study Comparison: 10/24/2020 Bilateral Screening Mammogram, [facility]. 02/05/2022 Bilateral MG 3D screening mammo w/cad, [facility]. 08/24/2023 Bilateral MG screening mammo w CAD, [facility]. Tissue Density: The breasts are almost entirely fatty. Findings: Analyzed By CAD. Right breast: There is no suspicious group of microcalcifications or new suspicious mass. Left breast: There is no suspicious group of microcalcifications or new suspicious mass. Overall Assessment: Negative, BI-RAD 1 Management: Screening Mammogram of both breasts in [address] [facility] will attempt to contact patient to return for supplemental views and ultrasound if indicated. Patient should continue monthly self-breast exams. A clinical breast exam by your physician is recommended on an annual basis. This exam should not preclude additional follow-up of suspicious palpable abnormalities. Note on Carolyn scores and lifetime risk: 1. A Carolyn score greater than 3% is considered moderate risk. If this is the case, consider specialist referral to assess eligibility for a risk reducing agent. 2. If overall lifetime risk for the development of breast cancer is 20% or higher, the patient may qualify for future screening with alternating mammogram and breast MRI. [facility], , 12/15/2024 1:56 PM. Electronically signed and approved by: Jimmy Gonzalez DO
== END | disposition home or self-care (01) ==
LOC: RADMAMWWP 12:34
PROVIDERS: ATTEND Internal Medicine
DX: Z12.31 Encounter for screening mammogram for malignant neoplasm of breast (principal); R92.313 Mammographic fatty tissue density, bilateral breasts; Z80.3 Family history of malignant neoplasm of breast
CPT/HCPCS: 77067